=== PATIENT | male | born 1960 | race Hispanic/Latino ===

== ENCOUNTER 2020-12-23 13:40 | Emergency (ER) | payer SELFPAY ==
[~2020-12-23] VITALS: Ht 165.1 cm; Wt 57.2 kg
[2020-12-23 13:43] VITALS: BP 122/74
[2020-12-23 15:25] LABS: APPEARANCE,URINE Clear (CLEAR); BILIRUBIN,URINE Negative (NEGATIVE); COLOR,URINE Yellow (YELLOW); GLUCOSE, URINE (UA) >=1000 mg/dL (NEGATIVE); KETONES,URINE 15 mg/dL (NEGATIVE); LEUKOCYTE ESTERASE ,URINE Negative (NEGATIVE); NITRATE,URINE Negative (NEGATIVE); OCCULT BLOOD,URINE Negative (NEGATIVE); PH,URINE 5.5 (5.0-8.0); PROTEIN,URINE Negative (NEGATIVE)
[2020-12-23 15:42] LABS: HEMATOCRIT 45.3 % (42-54); MEAN CORPUSCULAR HEMOGLOBIN 32.4 pg (27.0-33.0); MEAN CORPUSCULAR HGB CONC 33.8 g/dL (32.0-36.0); PLATELET COUNT (AUTO) 287 K/uL (130-400); RED BLOOD CELL COUNT(AUTO) 4.72 MIL/uL (4.50-6.20); WHITE BLOOD COUNT (AUTO) 8.9 K/uL (4.8-10.8)
[2020-12-23 15:59] LABS: CARBON DIOXIDE 26 mmol/L (21-32); CHLORIDE 102 mmol/L (101-111); CREATININE 1.1 mg/dL (0.5-1.5); GLOMERULAR FILTR. RATE CALC 73 mL/min (>60); GLUCOSE,RANDOM 207 mg/dL (70-105); POTASSIUM 4.3 mmol/L (3.5-5.1); SODIUM SERUM 138 mmol/L (136-145); UREA NITROGEN, BLOOD 32 mg/dL (7-18)
[2020-12-23 16:13] LABS: BACTERIA,URINE Rare /HPF (None Seen); RBC,URINE 0-1 /HPF (0-1); WBC,URINE 0-1 /HPF (0-1)
[2020-12-23 16:14] LABS: SQUAMOUS EPITHELIAL CELL,UR Rare /HPF (0-2)
[2020-12-23 16:14] LABS: ALANINE AMINOTRANSFERASE 26 U/L (12-78); ALBUMIN 3.6 g/dL (3.5-5.0); ASPARTATE AMINOTRANSFERASE 12 U/L (10-37); BILIRUBIN,TOTAL 0.3 mg/dL (0.2-1.0); CREATINE KINASE, TOTAL 83 U/L (21-232); MYOGLOBIN 28 ng/mL (10-92); TOTAL PROTEIN, SERUM 7.8 g/dL (6.0-8.3); TROPONIN I < 0.04 ng/mL (0.00-0.06)
[2020-12-23 16:35] LABS: BAND NEUTROPHILS % (MANUAL) 7 % (0-2); EOSINOPHILS % (MANUAL) 2 % (1-6); LYMPHOCYTES % (MANUAL) 12 % (22-44); MONOCYTES % (MANUAL) 3 % (2-9); REACTIVE LYMPHOCYTES 3 % (0-0); SEGMENTED NEUTROPHILS % 73 % (40-70)
[2020-12-23 16:36] LABS: MAN.DIFF COMMENT-IMPRESSION MANUAL DIFFERENTIAL
[2020-12-23] MEDS ORDERED: 0.9%NACL 1000ML 1,000 ML IV ONE ×2 (19:00→21:01)
[2020-12-23] MEDS ORDERED: IOHEXOL 350 MG/ML 100ML INFUS..BTL IV ONE (20:42)
[2020-12-23 22:03] VITALS: BP 125/70
[2020-12-23] MEDS ORDERED: MECL-160 PO (23:02)
== END 2020-12-23 23:28 | disposition home or self-care (01) ==
LOC: EDH 13:40
DX: R63.4 Abnormal weight loss (principal); R42 Dizziness and giddiness; R19.7 Diarrhea, unspecified; R51.9 Headache, unspecified; E11.9 Type 2 diabetes mellitus without complications; Z98.890 Other specified postprocedural states
CPT/HCPCS: 36415; 71045; 74177; 80053; 81001; 82550; 83690; 83874; 84484; 85025; 93005; 96360; 96361; 99285; J7030; Q9967